=== PATIENT | female | born 1995 | race Caucasian/White ===

== ENCOUNTER 2016-10-07 03:44 | Emergency (ER) | payer BC ==
[~2016-10-07] VITALS: Ht 157.5 cm; Wt 64.5 kg
[2016-10-07 03:50] VITALS: TEMP 36.6; Ht 157.5 cm; Wt 64.5 kg
[2016-10-07] MEDS ORDERED: AMOXICILLIN 250 MG CAP PO STA (04:08)
[2016-10-07] MEDS ORDERED: AMOXICILLIN HOME PACK 250 MG/TAB PO ONE (04:15)
[2016-10-07] MEDS ORDERED: CHLORHEXIDINE GLUCONATE 0.12% 480 ML MT ONE (04:15)
[2016-10-07] MEDS ORDERED: AMOX500C3 PO (04:30)
[2016-10-07] MEDS ORDERED: HYDR-5688 PO (04:30)
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
[2016-10-07 04:45] VITALS: BP 135/68; PULSE 81; O2SAT 98
== END 2016-10-07 04:47 | disposition home or self-care (01) ==
LOC: C.EDB 03:46
DX: S01.512A Laceration without foreign body of oral cavity, initial encounter (principal); W50.1XXA Accidental kick by another person, initial encounter

== ENCOUNTER 2017-07-25 10:41 | Emergency (ER) | payer BC ==
[~2017-07-25] VITALS: Ht 157.5 cm; Wt 59.5 kg
[2017-07-25 11:00] VITALS: Ht 157.5 cm; Wt 59.5 kg
[2017-07-25] MEDS ORDERED: SODIUM CHLORIDE 0.9% 1000ML 1,000 ML IV STA (11:36)
--- NOTE | 2017-07-25 11:42 | EMERGENCY ROOM VISIT NOTE ---
History First contact with patient: 11:25 Chief Complaint: ED VAG BLEEDING Stated Complaint: DIZZY, EXCESSIVE BLEEDING, NAUSEA, SENTFROM MED EX History of Present Illness The patient is a 21 year old female who presents to the Emergency Room with complaints of vaginal bleeding which began this morning. The patient states she awoke approximately 8:30 or 9 AM noticing a lot of blood between her legs. She states when she got up, the blood was running down her legs. She states she has changed her tampon 3 times since this initial incidents, and each time the tampon has been fully saturated with blood. The patient states she is feeling dizzy, lightheaded, and slightly nauseated. She was seen at [facility] [place] , and had a urine test performed which was negative. She was then sent to the emergency department for further workup and evaluation. The patient states she last changed her tampon approximately 30 minutes ago, and has not been bleeding through since then. Her last period ended July 09. This episode of bleeding seems to be much heavier than her normal bleeding. She states the blood was bright red in color, denies any passing of clots or tissue. The patient is sexually active with 1 male partner, but states she does not believe that she could be . She has not recently been ill. She denies any abdominal pain, pelvic pain, chest pain, dyspnea, headache, vomiting, urinary symptoms. She states earlier this week there was one day where she noticed some slight burning with urination, but this improved. Review of Systems A complete 10 point review of systems was reviewed with the patient with pertinent positives and negatives as per history of present illness. All else were negative. Past Medical/Surgical History None Social History Smoking Status: Never Smoker Smokeless Tobacco Use: No Alcohol Use: none Drug Use: none Marital Status: in relationship Housing Status: lives with roommate Occupation Status: [employer] student Current/Historical Medications No Active Prescriptions or Reported Meds Physical Exam Vital Signs Date Time Temp Pulse Resp B/P (MAP) Pulse Ox O2 Delivery O2 Flow Rate FiO2 07/25/17 13:21 70 18 139/79 100 07/25/17 12:40 66 07/25/17 12:05 99 Room Air 07/25/17 12:00 62 18 137/84 98 Room Air 07/25/17 11:00 36.7 84 16 129/82 99 Room Air Physical Exam VITAL SIGNS - Vital signs and nursing notes were reviewed. GENERAL -21-year-old Female appearing her stated age who is in no acute distress. Communicates well with provider and answers questions appropriately. HEAD - NC/AT. EYES - PERRL with EOMI bilaterally. Sclera anicteric. Palpebral conjunctiva pink and moist with no injection. EARS - No deformities of external structures noted on gross examination bilaterally. No pain elicited with palpation of the tragus bilaterally. External auditory canals without discharge or otorrhea. Tympanic membranes pearly mar without retraction or bulging. No fluid or purulent material visualized behind the TM. Handle of malleus, umbo, cone of light, pars tensa/ flaccid all easily visualized. NOSE - Midline and without cyanosis. No epistaxis or purulent drainage noted. Septum midline without deviation or septal hematoma noted. MOUTH/OROPHARYNX - Without perioral cyanosis. Buccal mucosa pink and moist and without leukoplakia. Tongue midline with equal elevation of palate bilaterally. No tonsillar hypertrophy, erythema, or exudates noted. Good dentition noted. NECK - Neck with FROM. Supple to. No lymphadenopathy noted. No nuchal rigidity. LUNGS - Chest wall symmetric without accessory muscle use, intercostals retractions, or central cyanosis. Normal vesicular breath sounds CTA B/L. No wheezes, rales, or rhonchi appreciated. CARDIAC - RRR with S1/S2. No murmur, rubs, or gallops appreciated. ABDOMEN - Abdominal contour normal without pulsations or visible masses. BS normoactive all four quadrants. No tenderness to palpation appreciated in any quadrant or pelvis. No palpable masses, hepatosplenomegaly, or ascites noted. FIREWALL ENGINEER - (An RN nurse wind turbine machinist was present throughout the entire FIREWALL ENGINEER procedure.) SPECULUM EXAM: - Water-soluble lubricant was applied to the plastic speculum and inserted into the vagina in a downward fashion towards the location of the cervix. When resistance was met, the speculum was opened to visualize the cervix. The cervical os was closed and with very mild bloody drainage. No lesions, masses, or purulent discharge noted. A swab of the cervix was taken for a vaginal culture and sensitivity. Gonoccal(GC)/Chlamydia endocervical sample were obtained. All 2 samples were sealed, labeled, and sent away for pathology. The speculum was slowly removed to visualize the vaginal rodriguez. No lesions, masses, or excoriations noted. Pt tolerated the procedure well and voiced no discomfort throughout the procedure. BIMANUAL EXAM: - MONS - Gurjit Stage V. No lesions or growths noted. No palpable inguinal lymph nodes. - VULVA - skin color consistent with surrounding structures. No signs of irritation, edema, lesions, growths, or discharge. No vulvar or clitoral adhesions. No tenderness to palpation. - PERINEUM - No growths or lesions. Skin intact without breakdown or scars. - BARTHOLIN'S GLANDS/SKENE'S GLANDS - No enlargement or discharge noted. No tenderness with palpation. - URETHRA - No erythema, edema, discharge, or blood noted. - VAGINA - [place] and moist without lesions, vesicles, discharge, or growths noted. - CERVIX - No cervical motion tenderness appreciated. - UTERUS - Palpable and nontender. - ADNEXA - No masses or tenderness noted with palpation. - RECTO-VAGINAL - No fissures, masses, or hemorrhoids visualized on minimal exam. PSYCH - A&Ox3 and cooperates fully with examiner. Pt is very pleasant and interacts well with examiner. Medical Decision & Procedures ER Provider Diagnostic Interpretation: CBC showed very mild acidosis of 12,000. No anemia or thrombocytopenia. Coagulation studies normal. Urinalysis was positive for 2+ ketones, 1+ occult blood, and epithelial cells. No signs of infection. PRP was without significant renal or electrolyte abnormalities. Quantitative hCG was negative (<1). Laboratory Results 07/25/17 12:00 Red Blood Count 4.72, Mean Corpuscular Volume 94.9, Mean Corpuscular Hemoglobin 33.1, Mean Corpuscular Hemoglobin Concent 34.8, Mean Platelet Volume 11.1, Neutrophils (%) (Auto) 76.2, Lymphocytes (%) (Auto) 17.8, Monocytes (%) (Auto) 5.3, Eosinophils (%) (Auto) 0.3, Basophils (%) (Auto) 0.2, Neutrophils # (Auto) 9.26, Lymphocytes # (Auto) 2.16, Monocytes # (Auto) 0.65, Eosinophils # (Auto) 0.04, Basophils # (Auto) 0.02 07/25/17 12:00 Test 07/25/17 12:00 07/25/17 12:41 07/25/17 12:57 White Blood Count 12.16 K/uL (4.8-10.8) Red Blood Count 4.72 M/uL (4.2-5.4) Hemoglobin 15.6 g/dL (12.0-16.0) Hematocrit 44.8 % (37-47) Mean Corpuscular Volume 94.9 fL (80-100) Mean Corpuscular Hemoglobin 33.1 pg (25-34) Mean Corpuscular Hemoglobin Concent 34.8 g/dl (32-36) Platelet Count 211 K/uL (130-400) Mean Platelet Volume 11.1 fL (7.4-10.4) Neutrophils (%) (Auto) 76.2 % Lymphocytes (%) (Auto) 17.8 % Monocytes (%) (Auto) 5.3 % Eosinophils (%) (Auto) 0.3 % Basophils (%) (Auto) 0.2 % Neutrophils # (Auto) 9.26 K/uL (1.4-6.5) Lymphocytes # (Auto) 2.16 K/uL (1.2-3.4) Monocytes # (Auto) 0.65 K/uL (0.11-0.59) Eosinophils # (Auto) 0.04 K/uL (0-0.5) Basophils # (Auto) 0.02 K/uL (0-0.2) RDW Standard Deviation 42.2 fL (36.4-46.3) RDW Coefficient of Variation 12.2 % (11.5-14.5) Immature Granulocyte % (Auto) 0.2 % Immature Granulocyte # (Auto) 0.03 K/uL (0.00-0.02) Prothrombin Time 10.4 SECONDS (9.0-12.0) Prothromb Time International Ratio 1.0 (0.9-1.1) Activated Partial Thromboplast Time 28.5 SECONDS (21.0-31.0) Partial Thromboplastin Ratio 1.1 Anion Gap 9.0 mmol/L (3-11) Est Creatinine Clear Calc Drug Dose 101.4 ml/min Estimated GFR () 144.6 Estimated GFR (Non- 124.7 BUN/Creatinine Ratio 16.2 (10-20) Calcium Level 9.4 mg/dl (8.5-10.1) Human Chorionic Gonadotropin, Quant < 1 mIU/mL Urine Color YELLOW Urine Appearance CLEAR (CLEAR) Urine pH 5.0 (4.5-7.5) Urine Specific [place] 1.022 (1.000-1.030) Urine Protein NEG (NEG) Urine Glucose (UA) NEG (NEG) Urine Ketones 2+ (NEG) Urine Occult Blood 1+ (NEG) Urine Nitrite NEG (NEG) Urine Bilirubin NEG (NEG) Urine Urobilinogen NEG (NEG) Urine Leukocyte Esterase NEG (NEG) Urine WBC (Auto) 1-5 /hpf (0-5) Urine RBC (Auto) 0-4 /hpf (0-4) Urine Hyaline Casts (Auto) 1-5 /lpf (0-5) Urine Epithelial Cells (Auto) 10-20 /lpf (0-5) Urine Bacteria (Auto) NEG (NEG) Medications Administered Medications (Trade) Dose Ordered Sig/Clay Route Start Time Stop Time Status Last Admin Dose Admin Sodium Chloride 1,000 ml @ 999 mls/hr Q1H1M STAT IV 07/25/17 11:36 07/25/17 12:36 DC 07/25/17 12:10 999 MLS/HR ED Course The patient was seen and evaluated as above. IV access obtained, labs drawn. The patient informed the nurse that she had taken Plan B approximately 8 days ago for unprotected sex. Pelvic examination was performed as outlined above. I did speak with [facility] ED pharmacist regarding likelihood that bleeding could be related to Plan B. The patient did not continue to experience significant bleeding, and states the tampon she removed was not saturated in blood. Discharge instructions were reviewed, and the patient was discharged home in good condition. Medical Decision This is a 21-year-old female patient who presents to the emergency department today complaining of significant vaginal bleeding which began this morning upon awakening. She states it was bleeding to the point where she noticed blood dripping onto the floor as she got out of bed. She is also complaining of dizziness, lightheadedness, and some mild nausea. She was seen a [facility], where a negative test was performed. She states she has gone through 3-4 tampons since the symptoms began approximately 2-3 hours prior to arrival, however she last changed her tampon at [facility], and has not bled through. Her examination here in the emergency department was overall negative, with insignificant labs and pelvic exam. Cultures were obtained and will be ordered and performed to evaluate for STDs. I suspect the patient's bleeding is related to plan B, and she may be experiencing bleeding depending on where she was in her menstrual cycle when she took the medication. The bleeding has improved since she has been here in the emergency department, and I do feel that discharge is appropriate with outpatient follow-up. The patient is in agreement with the assessment and plan. Etiologies such as threatened or spontaneous AB, ectopic , dysfunction uterine bleeding, bleeding dyscrasia, trauma, infection, as well as others were entertained. Medication Reconcilliation Current Medication List: was personally reviewed by me Blood Pressure Screening Patient's blood pressure: Normal blood pressure Impression Primary Impression: Vaginal bleeding Departure Information Dispostion Home / Self-Care Condition GOOD Prescriptions No Active Prescriptions or Reported Meds Referrals [facility] (PCP) Patient Instructions ED Bleed Irregular Vaginal, ED Contraception Emergency Plan B, My [facility] Additional Instructions You were seen in the emergency department today for vaginal bleeding. As discussed, I suspect this may be related to the plan B you took. As discussed, you can have a earlier, shorter, computer publisher period depending on when you took this medication in your cycle. Please continue to use pads/tampons for excessive bleeding. Ibuprofen(Motrin, Advil) may be used for fever or pain. Use 600mg every six hours as needed. Take with food. Avoid using more than 2400mg in a 24 hour period. Do not use 2400mg per day for more than three consecutive days without physician direction. Prolonged inappropriate use can lead to stomach upset or ulcers. (AND/OR) Acetaminophen(Tylenol) may be used for fever or pain. Use 1000mg every six hours as needed. Avoid using more than 3000mg in a 24 hour period. Follow-up in the emergency department for worsening bleeding, bleeding through greater than 1 tampon or pad per hour, severe abdominal pain or cramping, fever , or other concerning symptoms. Follow-up with [facility] in 2-3 days for reevaluation and ongoing management. Work Instructions Return To Work: 1 day
[2017-07-25 12:05] VITALS: O2SAT 99
[2017-07-25 12:27] LABS: BASO % 0.2 %; BASO ABS # 0.02 K/uL (0-0.2); EOS % 0.3 %; EOS ABS # 0.04 K/uL (0-0.5); HEMATOCRIT 44.8 % (37-47); HEMOGLOBIN 15.6 g/dL (12.0-16.0); IG# 0.03 K/uL (0.00-0.02); LYMPH % 17.8 %; LYMPH ABS # 2.16 K/uL (1.2-3.4); MEAN CELL VOLUME 94.9 fL (80-100); MEAN CORPUSCULAR HEMOGLOBIN 33.1 pg (25-34); MEAN CORPUSCULAR HGB CONC 34.8 g/dl (32-36); MEAN PLATELET VOLUME 11.1 fL (7.4-10.4); MONO % 5.3 %; MONO ABS # 0.65 K/uL (0.11-0.59); NEUT % 76.2 %; NEUT ABS # 9.26 K/uL (1.4-6.5); PLATELET COUNT 211 K/uL (130-400); RED CELL DISTRIBUTION WIDTH CV 12.2 % (11.5-14.5); RED CELL DISTRIBUTION WIDTH SD 42.2 fL (36.4-46.3); WHITE BLOOD COUNT 12.16 K/uL (4.8-10.8)
[2017-07-25 12:39] LABS: PTT PATIENT 28.5 SECONDS (21.0-31.0)
[2017-07-25 12:41] LABS: CALCIUM 9.4 mg/dl (8.5-10.1); CREATININE 0.7 mg/dl (0.60-1.20); POTASSIUM 3.9 mmol/L (3.5-5.1)
[2017-07-25 13:21] VITALS: BP 139/79; PULSE 70; O2SAT 100
== END 2017-07-25 13:22 | disposition home or self-care (01) ==
LOC: C.EDB 10:43 → C.EDC 13:22
DX: N93.9 Abnormal uterine and vaginal bleeding, unspecified (principal)

== ENCOUNTER 2018-02-27 13:29 | Emergency (ER) | payer BC ==
[~2018-02-27] VITALS: Ht 157.5 cm; Wt 64.0 kg
[2018-02-27 13:31] VITALS: TEMP 36.5; Ht 157.5 cm; Wt 64.0 kg
--- NOTE | 2018-02-27 14:18 | EMERGENCY ROOM VISIT NOTE ---
History First contact with patient: 13:58 Chief Complaint: DIZZY Stated Complaint: BLOOD IN URINE,LIGHTHEADED AND DIZZY Nursing Triage Summary: Bleeding in her urine and dizziness. History of Present Illness The patient is a 22 year old female who presents to the Emergency Room with complaints of urinary symptoms and dizziness. Patient states that she began noticing pain and burning with urination and then today also noticed blood. Patient states she has previously had one UTI. Patient denies any lower abdominal pain or cramping. Patient states her LMP was 1 week ago, denies she has had any abnormal vaginal bleeding or discharge. Patient states she has recently been sexually active with a new partner. Last intercourse was 3 days ago and was unprotected. Patient denies any concern for STDs. Patient states she has never had an STD previously. Patient states she did have subjective chills yesterday and today, and felt dizzy almost as if she was going to pass out. Patient denies actual syncope or loss of consciousness. States no fevers currently, no dizziness currently. Patient denies these her teeth chattering chills or shaking. Patient denies any prior history of kidney problems including kidney stones. Review of Systems See HPI for pertinent positives & negatives. A total of 10 systems reviewed and were otherwise negative. Social History Smoking Status: Never Smoker Alcohol Use: none Drug Use: none Marital Status: in relationship Housing Status: lives with roommate Occupation Status: [employer] student Current/Historical Medications Scheduled Cephalexin (Keflex), 1 CAP PO BID Scheduled PRN Phenazopyridine HCl (Pyridium), 200 MG PO TID PRN for Frequency/Burning w/ Urination Physical Exam Vital Signs Date Time Temp Pulse Resp B/P (MAP) Pulse Ox O2 Delivery O2 Flow Rate FiO2 02/27/18 16:00 75 18 112/73 97 02/27/18 15:30 87 20 126/75 98 Room Air 02/27/18 13:31 36.5 87 20 141/96 98 Room Air Physical Exam GENERAL: alert, well appearing, well nourished, no distress, non-toxic EYE EXAM: normal conjunctiva, PERRL and EOM's grossly intact OROPHARYNX: no exudate, no erythema, lips, buccal mucosa, and tongue normal and mucous membranes are moist NECK: supple, no nuchal rigidity, no adenopathy, non-tender LUNGS: Clear to auscultation. Normal chest wall mechanics HEART: no murmurs, S1 normal and S2 normal ABDOMEN: abdomen soft, non-tender, normo-active bowel sounds, no masses, no rebound or guarding. BACK: Back is symmetrical on inspection and there is no deformity, no midline tenderness, no CVA tenderness. SKIN: no rashes and no bruising UPPER EXTREMITIES: upper extremities are grossly normal. Full range of motion, normal pulses. LOWER EXTREMITIES: No pitting edema. Full range of motion, normal pulses. NEURO EXAM: Normal sensorium, cranial nerves II-XII grossly intact, normal speech, no gross weakness of arms, no gross weakness of legs. Gross sensation intact. Normal gait, no facial droop, no ataxia. Medical Decision & Procedures ER Provider Diagnostic Interpretation: ULTRASOUND KIDNEYS AND BLADDER CLINICAL HISTORY: Back pain. Dysuria. COMPARISON STUDY: No priors. TECHNIQUE: Real-time, grayscale, and color flow sonography of the kidneys and bladder is performed. Images are reviewed in the transverse and longitudinal planes. FINDINGS: Kidneys: The kidneys are normal in size and echotexture. The right kidney measures 9.3 cm in length and the left kidney measures 9.6 cm in length. There is no hydronephrosis. No shadowing renal calculi are identified. There is no sonographic evidence of contour deforming renal mass lesion. No perinephric fluid is identified. Bladder: The bladder is normal in appearance. Bilateral ureteral jets were seen. IMPRESSION: Unremarkable sonographic assessment of the kidneys and bladder. Electronically signed by: Steven Olmstead M.D. 02/27/2018 3:31 PM Laboratory Results 02/27/18 14:25 Red Blood Count 4.31, Mean Corpuscular Volume 97.0, Mean Corpuscular Hemoglobin 32.7, Mean Corpuscular Hemoglobin Concent 33.7, Mean Platelet Volume 11.2, Neutrophils (%) (Auto) 75.2, Lymphocytes (%) (Auto) 16.0, Monocytes (%) (Auto) 7.9, Eosinophils (%) (Auto) 0.3, Basophils (%) (Auto) 0.3, Neutrophils # (Auto) 8.96, Lymphocytes # (Auto) 1.91, Monocytes # (Auto) 0.94, Eosinophils # (Auto) 0.04, Basophils # (Auto) 0.03 02/27/18 14:25 Test 02/27/18 14:25 White Blood Count 11.92 K/uL (4.8-10.8) Red Blood Count 4.31 M/uL (4.2-5.4) Hemoglobin 14.1 g/dL (12.0-16.0) Hematocrit 41.8 % (37-47) Mean Corpuscular Volume 97.0 fL (80-100) Mean Corpuscular Hemoglobin 32.7 pg (25-34) Mean Corpuscular Hemoglobin Concent 33.7 g/dl (32-36) Platelet Count 254 K/uL (130-400) Mean Platelet Volume 11.2 fL (7.4-10.4) Neutrophils (%) (Auto) 75.2 % Lymphocytes (%) (Auto) 16.0 % Monocytes (%) (Auto) 7.9 % Eosinophils (%) (Auto) 0.3 % Basophils (%) (Auto) 0.3 % Neutrophils # (Auto) 8.96 K/uL (1.4-6.5) Lymphocytes # (Auto) 1.91 K/uL (1.2-3.4) Monocytes # (Auto) 0.94 K/uL (0.11-0.59) Eosinophils # (Auto) 0.04 K/uL (0-0.5) Basophils # (Auto) 0.03 K/uL (0-0.2) RDW Standard Deviation 43.7 fL (36.4-46.3) RDW Coefficient of Variation 12.4 % (11.5-14.5) Immature Granulocyte % (Auto) 0.3 % Immature Granulocyte # (Auto) 0.04 K/uL (0.00-0.02) Urine Color YELLOW Urine Appearance CLEAR (CLEAR) Urine pH >= 9.0 (4.5-7.5) Urine Specific [place] 1.006 (1.000-1.030) Urine Protein NEG (NEG) Urine Glucose (UA) NEG (NEG) Urine Ketones NEG (NEG) Urine Occult Blood 3+ (NEG) Urine Nitrite NEG (NEG) Urine Bilirubin NEG (NEG) Urine Urobilinogen NEG (NEG) Urine Leukocyte Esterase LARGE (NEG) Urine WBC (Auto) >30 /hpf (0-5) Urine RBC (Auto) 10-30 /hpf (0-4) Urine Hyaline Casts (Auto) 1-5 /lpf (0-5) Urine Epithelial Cells (Auto) >30 /lpf (0-5) Urine Bacteria (Auto) NEG (NEG) Urine Test NEG (NEG) Anion Gap 7.0 mmol/L (3-11) Est Creatinine Clear Calc Drug Dose 113.3 ml/min Estimated GFR () 144.2 Estimated GFR (Non- 124.4 BUN/Creatinine Ratio 14.0 (10-20) Calcium Level 9.2 mg/dl (8.5-10.1) Total Bilirubin 0.6 mg/dl (0.2-1) Aspartate Amino Transf (AST/SGOT) 22 U/L (15-37) Alanine Aminotransferase (ALT/SGPT) 28 U/L (12-78) Alkaline Phosphatase 74 U/L (45-117) Total Protein 8.1 gm/dl (6.4-8.2) Albumin 4.3 gm/dl (3.4-5.0) Globulin 3.8 gm/dl (2.5-4.0) Albumin/Globulin Ratio 1.1 (0.9-2) Thyroid Stimulating Hormone (TSH) 0.762 uIu/ml (0.300-4.500) Human Chorionic Gonadotropin, Qual NEG (NEG) Medications Administered Medications (Trade) Dose Ordered Sig/Clay Route Start Time Stop Time Status Last Admin Dose Admin Phenazopyridine HCl (Phenazopyridine HCl 200MG Home Pack) 1 homepack UD ONCE PO 02/27/18 15:45 02/27/18 15:46 DC 02/27/18 15:42 1 HOMEPACK Phenazopyridine HCl (Pyridium Tab) 200 mg NOW STAT PO 02/27/18 15:35 02/27/18 15:36 DC 02/27/18 15:42 200 MG Cephalexin Monohydrate (Keflex Cap) 500 mg NOW ONCE PO 02/27/18 15:45 02/27/18 15:46 DC 02/27/18 15:42 500 MG Cephalexin Monohydrate (Keflex 500MG Home Pack) 1 homepack NOW ONCE PO 02/27/18 15:45 02/27/18 15:46 DC 02/27/18 15:42 1 HOMEPACK ECG Per My Interpretation Indication: other Rate (beats per minute): 67 Rhythm: normal sinus Findings: no acute ischemic change, other (Isolated inverted T-wave in lead III , appearance of incomplete right bundle branch block in V1 and V2, normal axis and intervals) Comparison ECG Date: no prior available ED Course 1543: Patient updated on all results. No vomiting or worsening pain while here. Discussed with patient use of antibiotics and Pyridium, symptoms to watch and return for, she verbalized understanding was agreeable with plan. Medical Decision Differential diagnosis: Etiologies such as appendicitis, diverticulitis, PUD, biliary pathology, UTI, pancreatitis, obstruction, mesenteric ischemia, aortic pathology, infections, inflammatory bowel disease, renal colic, as well as others were entertained. Patient well-appearing here. Concerned given some systemic symptoms in concurrence with symptoms suggestive of UTI which prompted labs and imaging. Patient's labs and imaging here are reassuring, urine suggestive of UTI. Patient started on antibiotics and Pyridium here. Discussed with her close follow-up with family doctor, use of medications, adequate hydration, symptoms to watch and return for, she verbalized understanding was agreeable with plan. I do not suspect bacteremia/sepsis, I do not suspect concurrent obstructive uropathy, I do not suspect additional GI or vascular pathology contributing to pain. Have a lower suspicion for PID, TOA, ectopic or other acute gynecologic issue. Discussed with patient risks associated with unprotected intercourse and a new partner. Discussed with her symptoms to watch and return for regarding an STD. Patient was offered a pelvic exam and check for STDs which she declined. Patient well-appearing at time of discharge, tolerating p.o., amatory with a steady gait, aware of all results and agreeable with plan. I do feel there is a component of anxiety regarding the recent sexual encounter and subsequent urinary tract infection. I do not suspect occult cardiac or [employer] pathology contributing to mild dizziness prior to her presentation today. Medication Reconcilliation Current Medication List: was personally reviewed by me Blood Pressure Screening Patient's blood pressure: Elevated blood pressure Blood pressure disposition: Elevated BP felt to be situational Impression Primary Impression: UTI (urinary tract infection) Additional Impression: Dizziness Departure Information Dispostion Home / Self-Care Condition GOOD Prescriptions Phenazopyridine HCl (Pyridium) 200 Mg Tab 200 MG PO TID Y for Frequency/Burning w/Urination, #10 TAB Prov: Le Almonte, DO 02/27/18 Cephalexin (KEFLEX) 500 Mg Cap 1 CAP PO BID for 7 Days, #14 CAP Prov: Le AlmonteMorena, DO 02/27/18 Referrals No Doctor, Assigned (PCP) Patient Instructions [facility] Additional Instructions Please take the antibiotics as prescribed until they are finished. You may use the Pyridium as needed, please note that it will turn your urine orange. Please continue to drink plenty of water throughout the day to stay well- hydrated. If you develop any worsening pain, develop vomiting, fevers or chills , recurrent episodes of dizziness or feel like you are going to pass out, develop chest pain or palpitations, trouble breathing, or you have any other new concerns, please return the emergency room. Problem Qualifiers Primary Impression: UTI (urinary tract infection) Urinary tract infection type: acute cystitis Hematuria presence: with hematuria Qualified Codes: N30.01 - Acute cystitis with hematuria
[2018-02-27 14:45] LABS: BASO % 0.3 %; BASO ABS # 0.03 K/uL (0-0.2); EOS % 0.3 %; EOS ABS # 0.04 K/uL (0-0.5); HEMATOCRIT 41.8 % (37-47); HEMOGLOBIN 14.1 g/dL (12.0-16.0); IG# 0.04 K/uL (0.00-0.02); LYMPH ABS # 1.91 K/uL (1.2-3.4); MEAN CORPUSCULAR HEMOGLOBIN 32.7 pg (25-34); MEAN CORPUSCULAR HGB CONC 33.7 g/dl (32-36); MEAN PLATELET VOLUME 11.2 fL (7.4-10.4); MONO % 7.9 %; MONO ABS # 0.94 K/uL (0.11-0.59); NEUT % 75.2 %; NEUT ABS # 8.96 K/uL (1.4-6.5); PLATELET COUNT 254 K/uL (130-400); RED CELL DISTRIBUTION WIDTH CV 12.4 % (11.5-14.5); RED CELL DISTRIBUTION WIDTH SD 43.7 fL (36.4-46.3); WHITE BLOOD COUNT 11.92 K/uL (4.8-10.8)
[2018-02-27 15:21] LABS: ALBUMIN 4.3 gm/dl (3.4-5.0); CALCIUM 9.2 mg/dl (8.5-10.1); CREATININE 0.69 mg/dl (0.60-1.20); TOTAL PROTEIN 8.1 gm/dl (6.4-8.2)
[2018-02-27] MEDS ORDERED: CEFTRIAXONE SOD INJ 1 GM ADDVIAL IV STA (15:23)
--- NOTE | 2018-02-27 15:32 | DIAGNOSTIC IMAGING REPORT ---
ULTRASOUND KIDNEYS AND BLADDER CLINICAL HISTORY: Back pain. Dysuria. COMPARISON STUDY: No priors. TECHNIQUE: Real-time, grayscale, and color flow sonography of the kidneys and bladder is performed. Images are reviewed in the transverse and longitudinal planes. FINDINGS: Kidneys: The kidneys are normal in size and echotexture. The right kidney measures 9.3 cm in length and the left kidney measures 9.6 cm in length. There is no hydronephrosis. No shadowing renal calculi are identified. There is no sonographic evidence of contour deforming renal mass lesion. No perinephric fluid is identified. Bladder: The bladder is normal in appearance. Bilateral ureteral jets were seen. IMPRESSION: Unremarkable sonographic assessment of the kidneys and bladder. Electronically signed by: Steven Olmstead M.D. 02/27/2018 3:31 PM Dictated Date/Time: 02/27/2018 3:21 PM
[2018-02-27] MEDS ORDERED: PHENAZOPYRIDINE HCL 200 MG TAB PO STA (15:35)
[2018-02-27] MEDS ORDERED: CEPHALEXIN 500MG HOME PACK 1 EA BTL PO ONE (15:45)
[2018-02-27] MEDS ORDERED: CEPHALEXIN MONOHYDRATE 250 MG CAP PO ONE (15:45)
[2018-02-27] MEDS ORDERED: PHENAZOPYRIDINE HOME PACK 200 MG VIAL PO ONE (15:45)
[2018-02-27] MEDS ORDERED: CEPH-571 PO (15:47)
[2018-02-27] MEDS ORDERED: PHEN-876 PO (15:47)
[2018-02-27 16:00] VITALS: BP 112/73; PULSE 75; O2SAT 97
== END 2018-02-27 16:00 | disposition home or self-care (01) ==
LOC: C.EDB 13:31 → C.EDC 16:00
DX: N30.01 Acute cystitis with hematuria (principal); R42 Dizziness and giddiness